=== PATIENT | female | born 1975 | race African-American/Black ===

== ENCOUNTER 2017-10-03 11:31 | Emergency (ER) | payer SELFPAY ==
[~2017-10-03] VITALS: Ht 172.7 cm; Wt 61.8 kg
[2017-10-03 12:02] VITALS: BP 130/74
== END 2017-10-03 14:20 | disposition left against medical advice (07) ==
LOC: EME 11:31
DX: R06.2 Wheezing (principal); J45.909 Unspecified asthma, uncomplicated; Z53.21 Procedure and treatment not carried out due to patient leaving prior to being seen by health care provider
CPT/HCPCS: 99281